=== PATIENT | female | born 1970 | race Caucasian/White ===

== ENCOUNTER 2025-01-14 07:45 | Inpatient (IN) | payer OTHER ==
[~2025-01-14] VITALS: Ht 165.1 cm; Wt 77.1 kg
[2025-01-14] MEDS ORDERED: SYNTHROID88 MCG PO (09:10)
[2025-01-14] MEDS ORDERED: KEYTRUDA100 MG/4 M (09:10)
[2025-01-14 09:11] VITALS: BP 122/84
[2025-01-14] MEDS ORDERED: MOUNJARO7.5 MG/0.5 (09:11)
[2025-01-14 09:21] LABS: BASO % 0.8 % (0.1-1.2); EOS # 0.39 (0.04-0.54); EOS % 4.7 % (0.7-7.0); HEMATOCRIT 43.5 % (34.1-44.9); HEMOGLOBIN 13.9 g/dL (11.2-15.7); LYMPH # 1.77 (1.18-3.74); LYMPH % 21.1 % (19.3-53.1); MEAN CORPUSCULAR HEMOGLOBIN 28.3 pg (25.6-32.2); MONO # 0.64 (0.24-0.82); MONO % 7.6 % (4.7-12.5); NEUT # 5.47 (1.56-6.13); NEUT % 65.4 % (34.0-71.1); PLATELET COUNT 241 K/uL (163-369); RED BLOOD COUNT 4.91 M/uL (3.93-5.22); RED CELL DISTRIBUTION WIDTH 12.9 % (11.6-14.4)
[2025-01-14 09:46] LABS: INR 0.96; PROTHROMBIN TIME 10.5 SECONDS (9.0-11.5)
[2025-01-14 09:57] LABS: ALBUMIN 3.9 gm/dL (3.4-5.0); BILIRUBIN TOTAL 0.48 mg/dL (0.3-1.2); CALCIUM 9.9 mg/dL (8.5-10.1); GFR 58.22; GLOBULINA 3.8 G/DL (2.4-3.5); POTASSIUM 4.92 mEq/L (3.5-5.1); TOTAL PROTEIN 7.7 gm/dL (6.4-8.2)
[2025-01-14 10:09] LABS: PH,URINE 5.5 (5.0-8.0); URINE APPEARANCE Clear; URINE BILIRRUBIN Negative (NEGATIVE); URINE BLOOD Negative; URINE COLOR Yellow; URINE GLUCOSE Negative (NEGATIVE); URINE KETONE Negative (NEGATIVE); URINE LEUKOCYTE Moderate; URINE NITRATE Negative; URINE PROTEIN Negative (NEGATIVE); URINE UROBILINOGEN 0.2 E.U./dl
[2025-01-14 10:13] LABS: URINE BACTERIA 205.6 uL (0.0-1933); URINE RBC 3.2 uL (0.0-20.8); URINE WBC 116.9 uL (0.0-23.2)
[2025-01-24] MEDS ORDERED: CEFAZOLIN SODIUM 1,000 MG VIAL ONE (09:15)
[2025-01-24] MEDS ORDERED: DEXAMETHASONE SODIUM PHOSPHATE 4 MG/ML VIAL ONE (09:17)
[2025-01-24] MEDS ORDERED: DEXTROSE 50 % IN WATER 0.5 G/ML VIAL IV PRN (13:45)
[2025-01-24] MEDS ORDERED: ONDANSETRON HCL 2 MG/ML VIAL IV PRN (13:45)
[2025-01-24] MEDS ORDERED: INSULIN LISPRO 1,000 UNIT/10 ML UNITS SUBCUTANEO PRN (13:45)
[2025-01-24] MEDS ORDERED: MORPHINE SULFATE 4 MG/ML VIAL IV ONE ×2 (14:50→16:20)
[2025-01-24] MEDS ORDERED: ACETAMINOPHEN 500 MG GEL..CAP PO SCH (17:00)
[2025-01-24] MEDS ORDERED: TRAMADOL HCL 50 MG TABLET PO SCH (17:00)
[2025-01-24] MEDS ORDERED: LIDOCAINE HCL 60 ML,MAG HYDROX/ALUMINUM HYD/SIMETH 60 ML,DIPHENHYDRAMINE HCL 150 MG MM SCH (17:00)
[2025-01-24] MEDS ORDERED: CYCLOBENZAPRINE HCL 5 MG TABLET PO SCH (17:00)
[2025-01-24] MEDS ORDERED: GABAPENTIN 100 MG CAPSULE PO SCH (17:00)
[2025-01-24] MEDS ORDERED: PANTOPRAZOLE SODIUM 40 MG/VIAL VIAL IV PUSH SCH (21:00)
[2025-01-24] MEDS ORDERED: Calcium Carbonate 1 TAB TABLET PO SCH (21:00)
[2025-01-25 00:30] VITALS: BP 105/69; O2SAT 96
[2025-01-25] MEDS ORDERED: LEVOTHYROXINE SODIUM 88 MCG TABLET PO SCH (06:00)
[2025-01-25 08:31] VITALS: BP 93/60; O2SAT 98
[2025-01-25] MEDS ORDERED: MAG HYDROX/ALUMINUM HYD/SIMETH 30 ML BLIST.PACK PO ONE ×2 (08:45→16:50)
== END 2025-01-25 17:17 | disposition home or self-care (01) | DRG 627 ==
LOC: O/R 01-24 07:15 → SURH 01-24 07:15
PROVIDERS: ADMIT Surgery; ATTEND Surgery
PROC: 0GBQ0ZZ Excision of Multiple Parathyroid Glands, Open Approach (ICD-10-PCS; principal; 2025-01-24 13:45)
DX: E21.0 Primary hyperparathyroidism (principal)